=== PATIENT | female | born 2005 | race Caucasian/White ===

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

== ENCOUNTER 2024-10-02 11:20 | Emergency (ER) | payer SELFPAY ==
[~2024-10-02] VITALS: Ht 167.6 cm; Wt 72.5 kg
[2024-10-02] VITALS (8 sets, daily range): BP systolic 104–134; BP diastolic 67–95
[~2024-10-02 11:20] MED LIST changes: +AMOXICILLIN875 MG PO; +CORTISPORIN OTI10 M2 AD
[2024-10-02] MEDS ORDERED: IMODIUM A-D2 M3 PO (14:05)
[2024-10-02] MEDS ORDERED: ONDANSETRON4 MG PO (14:05)
[2024-10-02] MEDS ORDERED: TAM75CAP PO (14:05)
[2024-10-02] MEDS ORDERED: MEDDOSEPAK PO (14:05)
[2024-10-02] MEDS ORDERED: BENZONATATE200 MG PO (14:05)
[2024-10-02] MEDS ORDERED: DEXAMETHASONE SOD. PHOSPHATE 10 MG/ML VIAL IM ONE (14:10)
[2024-10-02] MEDS ORDERED: ONDANSETRON 4 MG/TAB ODT PO ONE (14:10)
[2024-10-02] MEDS ORDERED: OSELTAMIVIR PHOSPHATE 75 MG/TAB CAP PO ONE (14:10)
== END 2024-10-02 14:42 | disposition home or self-care (01) | DRG 195 ==
LOC: ED 11:20
DX: J10.1 Influenza due to other identified influenza virus with other respiratory manifestations (principal); Z20.822 Contact with and (suspected) exposure to COVID-19
CPT/HCPCS: J1100